=== PATIENT | male | born 1975 | race Two or more races ===

== ENCOUNTER 2017-01-26 11:30 | Emergency (ER) | payer SELFPAY ==
[~2017-01-26] VITALS: Ht 175.3 cm; Wt 86.2 kg
[2017-01-26 12:25] LABS: Basophils # (auto) 0 uL; Basophils % (auto) 0.6 % (0.0-2.0); Eosinophils # (auto) 0.1 uL; Eosinophils % (auto) 0.8 % (0.0-7.0); Hematocrit 44.8 % (41.0-53.0); Hemoglobin 15.1 g/dL (13.5-17.5); Lymphocytes # (auto) 1.3 uL; Lymphocytes % (auto) 20.4 % (10.0-50.0); Mean Corpuscular Hemoglobin 31.2 pg (28.0-32.0); Mean Corpuscular Hgb Conc. 33.7 g/dL (32.0-36.0); Mean Corpuscular Volume 92.5 fL (80.0-100.0); Monocytes # (auto) 0.4 uL; Monocytes % (auto) 6.6 % (0.0-12.0); Neutrophils # (auto) 4.4 uL; Neutrophils % (auto) 71.6 % (37.0-80.0); Nucleated Red Blood Cells % 0.1 %; Platelet Count (auto) 206 10^3/uL (140-450); Red Blood Cells 4.85 10^6/uL (4.5-5.90); Red Cell Distribution Width 13.1 % (11.8-14.3); White Blood Cell 6.1 10^3/uL (4.4-10.8)
[2017-01-26 12:48] LABS: Alanine Aminotransferase 32 U/L (16-61); Albumin 4.4 g/dL (3.4-5.0); Alkaline Phosphatase 116 U/L (45-117); Anion Gap 8 (5-15); Aspartate Aminotransferase 16 U/L (15-37); BUN/Creatinine Ratio 17.6; Bilirubin, Total 0.4 mg/dL (0.2-1.0); Blood Urea Nitrogen 15 mg/dL (7-18); Calcium 8.7 mg/dL (8.5-10.1); Carbon Dioxide 27 mmol/L (21-32); Chloride 104 mmol/L (98-107); GFR African American 128 mL/min; GFR Non-African American 106 mL/min; Glucose 128 mg/dL (74-106); Magnesium 2.5 mg/dL (1.6-2.6); Potassium 4.1 mmol/L (3.5-5.1); Sodium 139 mmol/L (136-145); Total Protein 8.6 g/dL (6.4-8.2)
[2017-01-26 13:55] VITALS: BP 129/80
[2017-01-26] MEDS ORDERED: LORazepam 0.5 MG TAB PO ONE (14:45)
[2017-01-26] MEDS ORDERED: ASPirin 325 MG TAB PO ONE (14:45)
== END 2017-01-26 15:51 | disposition home or self-care (01) ==
LOC: ER 11:30
DX: R07.89 Other chest pain (principal); F41.9 Anxiety disorder, unspecified
CPT/HCPCS: 36415; 71020; 80053; 83735; 84484; 85025; 93005

== ENCOUNTER 2017-03-11 10:16 | Inpatient (IN) | payer SELFPAY ==
[~2017-03-11] VITALS: Ht 182.9 cm; Wt 87.4 kg
[2017-03-11 11:05] LABS: Basophils # (auto) 0 uL; Basophils % (auto) 0.6 % (0.0-2.0); Eosinophils # (auto) 0 uL; Eosinophils % (auto) 0.8 % (0.0-7.0); Hematocrit 48.6 % (41.0-53.0); Hemoglobin 16.4 g/dL (13.5-17.5); Lymphocytes # (auto) 1.7 uL; Lymphocytes % (auto) 27.5 % (10.0-50.0); Mean Corpuscular Hemoglobin 30.8 pg (28.0-32.0); Mean Corpuscular Hgb Conc. 33.6 g/dL (32.0-36.0); Mean Corpuscular Volume 91.6 fL (80.0-100.0); Mean Platelet Volume 8.8 fL (6.9-10.8); Monocytes # (auto) 0.4 uL; Monocytes % (auto) 7.1 % (0.0-12.0); Nucleated Red Blood Cells % 0.1 %; Platelet Count (auto) 234 10^3/uL (140-450); Red Cell Distribution Width 13.1 % (11.8-14.3); White Blood Cell 6.2 10^3/uL (4.4-10.8)
[2017-03-11 11:22] LABS: Albumin 4.6 g/dL (3.4-5.0); BUN/Creatinine Ratio 9.7; Bilirubin, Total 0.5 mg/dL (0.2-1.0); Calcium 9.3 mg/dL (8.5-10.1); Potassium 5.3 mmol/L (3.5-5.1)
[2017-03-11] MEDS ORDERED: SODIUM BICARBONATE 8.4% INJ 50ML SYRINGE IV ONE (11:45)
[2017-03-11] MEDS ORDERED: CALCIUM GLUC 4.65meq/50ml D5AE 50 ML IV ONE (11:45)
[2017-03-11] MEDS ORDERED: DEXTROSE (50%) 50ML SYRG IV ONE (11:45)
[2017-03-11] MEDS ORDERED: InsuLIN REG 1unit/0.01ml Soln (100units/ml) IV ONE (11:45)
[2017-03-11] MEDS ORDERED: SODIUM POLYSTYRENE SULF 15GM/60ML SUSP PR ONE (11:45)
[2017-03-11 11:53] LABS: Temperature: 23.5 C (20.0-25.0)
[2017-03-11] MEDS ORDERED: IOHEXOL 300 MG/ML 100ML BOTTLE IJ ONE (13:40)
[2017-03-11] MEDS ORDERED: IOHEXOL 350 MG/ML 100ML IJ ONE (13:42)
[2017-03-11] MEDS ORDERED: TEMAZEPAM 15 MG CAP PO PRN (13:45)
[2017-03-11] MEDS ORDERED: HYDROcodone-ACET 5/325MG TAB PO PRN (13:45)
[2017-03-11] MEDS ORDERED: ACETAMINOPHEN 325 MG TAB PO PRN (13:45)
[2017-03-11] MEDS ORDERED: NITROGLYCERIN 0.4 MG SL TAB SL PRN (13:45)
[2017-03-11] MEDS ORDERED: ONDANSETRON HCL 4 MG/2 ML VIAL IV PRN (13:45)
[2017-03-11] MEDS ORDERED: MORPHINE SULF INJ 2 MG/ML SYRINGE 1ML IV PRN ×2 (13:45)
[2017-03-11] MEDS ORDERED: DOCUSATE SOD 100 MG CAP PO PRN (13:45)
[2017-03-11] MEDS ORDERED: PANTOPRAZOLE 40 MG TAB PO ONE (14:00)
[2017-03-11] MEDS ORDERED: ENOXAPARIN SOD 40 MG/0.4 ML SYRINGE SC ONE (14:00)
[2017-03-11] MEDS ORDERED: ALUM & MAG HYDROX-SIMETH LIQ(MAALOX) 30 ML PO PRN (14:00)
[2017-03-11] MEDS ORDERED: MULTIPLE VITAMIN TAB PO ONE (14:00)
[2017-03-11] MEDS: SODIUM CHLORIDE 0.9% 1,000 ML IV SCH (14:14)
[2017-03-11] MEDS ORDERED: ALPRAZolam 0.25 MG TAB PO PRN (14:15)
[2017-03-11 15:31] LABS: Urine RBC None Seen /hpf (0 - 3)
[2017-03-11 15:45] LABS: Urine Bilirubin Negative (Negative); Urine Blood Negative /uL (Negative); Urine Color Colorless (Yellow); Urine Glucose Normal (Normal); Urine Ketone Negative (Negative); Urine Nitrite Negative (Negative); Urine Urobilinogen Normal (Negative); Urine pH 6.5 (5.0-8.0)
[2017-03-11 17:40] VITALS: BP 125/70
[2017-03-11 18:07] VITALS: BP 125/70
[2017-03-11 22:00] VITALS: BP 111/67
[2017-03-11] MEDS ORDERED: FAMOTIDINE 20 MG TAB PO SCH (22:00)
[2017-03-12] MEDS: SODIUM CHLORIDE 0.9% 1,000 ML IV SCH ×4 (03:10→23:01)
[2017-03-12 05:53] LABS: Basophils # (auto) 0 uL; Basophils % (auto) 0.5 % (0.0-2.0); Eosinophils # (auto) 0.1 uL; Eosinophils % (auto) 1.2 % (0.0-7.0); Hematocrit 41.4 % (41.0-53.0); Hemoglobin 13.9 g/dL (13.5-17.5); Lymphocytes % (auto) 38.2 % (10.0-50.0); Mean Corpuscular Hemoglobin 30.6 pg (28.0-32.0); Mean Corpuscular Hgb Conc. 33.5 g/dL (32.0-36.0); Mean Corpuscular Volume 91.5 fL (80.0-100.0); Mean Platelet Volume 9.1 fL (6.9-10.8); Monocytes # (auto) 0.5 uL; Monocytes % (auto) 8.8 % (0.0-12.0); Neutrophils # (auto) 2.7 uL; Neutrophils % (auto) 51.3 % (37.0-80.0); Nucleated Red Blood Cells % 0.2 %; Platelet Count (auto) 192 10^3/uL (140-450); Red Cell Distribution Width 13.2 % (11.8-14.3); White Blood Cell 5.4 10^3/uL (4.4-10.8)
[2017-03-12 06:00] VITALS: BP 110/63
[2017-03-12 06:27] LABS: Albumin 3.6 g/dL (3.4-5.0); BUN/Creatinine Ratio 12.5; Calcium 8.3 mg/dL (8.5-10.1); Potassium 4.1 mmol/L (3.5-5.1)
[2017-03-12 06:29] LABS: Bilirubin, Total 0.4 mg/dL (0.2-1.0); Total Protein 7.1 g/dL (6.4-8.2)
[2017-03-12 08:00] VITALS: BP 111/62
[2017-03-12 08:18] VITALS: BP 111/65
[2017-03-12] MEDS ORDERED: MULTIPLE VITAMIN TAB PO SCH (10:00)
[2017-03-12] MEDS ORDERED: PANTOPRAZOLE 40 MG TAB PO SCH (10:00)
[2017-03-12] MEDS: ENOXAPARIN SOD 40 MG/0.4 ML SYRINGE SC SCH (10:20)
[2017-03-12 11:07] LABS: Amylase 34 U/L (25-115)
[2017-03-12 12:02] VITALS: BP 116/67
[2017-03-12 16:42] VITALS: BP 116/65
[2017-03-12] MEDS ORDERED: MULTIPLE VITAMINS W/ MINERALS TAB PO ONE (17:15)
[2017-03-12] MEDS: PRO-STAT 64 30ML PO SCH (19:07)
[2017-03-12 22:00] VITALS: BP 121/66
[2017-03-12] MEDS: PANTOPRAZOLE 40 MG TAB PO SCH (22:19)
[2017-03-12] MEDS: ASCORBIC ACID 500 MG TAB PO SCH (22:20)
[2017-03-13 04:49] VITALS: BP 125/74
[2017-03-13 06:59] LABS: Basophils # (auto) 0 uL; Basophils % (auto) 0.7 % (0.0-2.0); Eosinophils # (auto) 0 uL; Eosinophils % (auto) 0.4 % (0.0-7.0); Hematocrit 40.7 % (41.0-53.0); Hemoglobin 13.7 g/dL (13.5-17.5); Lymphocytes # (auto) 1.4 uL; Lymphocytes % (auto) 25.3 % (10.0-50.0); Mean Corpuscular Hemoglobin 30.8 pg (28.0-32.0); Mean Corpuscular Hgb Conc. 33.7 g/dL (32.0-36.0); Mean Corpuscular Volume 91.3 fL (80.0-100.0); Mean Platelet Volume 8.8 fL (6.9-10.8); Monocytes # (auto) 0.3 uL; Monocytes % (auto) 6.4 % (0.0-12.0); Neutrophils # (auto) 3.6 uL; Neutrophils % (auto) 67.2 % (37.0-80.0); Platelet Count (auto) 185 10^3/uL (140-450); Red Cell Distribution Width 13.1 % (11.8-14.3); White Blood Cell 5.4 10^3/uL (4.4-10.8)
[2017-03-13 07:18] LABS: Albumin 3.6 g/dL (3.4-5.0); BUN/Creatinine Ratio 10.4; Calcium 8.3 mg/dL (8.5-10.1); Potassium 3.9 mmol/L (3.5-5.1)
[2017-03-13] MEDS: SODIUM CHLORIDE 0.9% 1,000 ML IV SCH (07:21)
[2017-03-13 07:26] LABS: Bilirubin, Total 0.5 mg/dL (0.2-1.0); Total Protein 7.2 g/dL (6.4-8.2)
[2017-03-13] MEDS ORDERED: FLUMAZENIL 0.1 MG/ML INJ 10ML MDV IV ONE (08:17)
[2017-03-13] MEDS ORDERED: LIDOCAINE VISCOUS 2% 15ML UD ONE (08:17)
[2017-03-13] MEDS ORDERED: SODIUM CHLORIDE LOCK 10 ML ONE (08:17)
[2017-03-13] MEDS ORDERED: NALOXONE HCL 0.4 MG/ML VIAL ONE (08:17)
[2017-03-13] MEDS ORDERED: diphenhdrAMINE HCL 50 MG/1 ML VL ONE (08:18)
[2017-03-13] MEDS: PRO-STAT 64 30ML PO SCH ×2 (08:18→18:00)
[2017-03-13 08:19] LABS: INR 0.99 (0.9-1.15); Partial Thromboplastin Time 29.4 sec (22.64-33.71); Prothrombin Time 10.8 sec (9.37-12.3)
[2017-03-13 09:16] VITALS: BP 130/75
[2017-03-13] MEDS: MIDAZOLAM HCL 5 MG/ML-1ML VIAL ONE ×2 (10:19→10:22)
[2017-03-13] MEDS: fentaNYL CITRATE 100 MCG/2 ML VL ONE ×2 (10:19→10:22)
[2017-03-13 11:51] VITALS: BP 126/84
[2017-03-13] MEDS: MULTIPLE VITAMINS W/ MINERALS TAB PO SCH (12:00)
[2017-03-13] MEDS: PANTOPRAZOLE 40 MG TAB PO SCH ×2 (12:00→21:26)
[2017-03-13] MEDS: ASCORBIC ACID 500 MG TAB PO SCH ×2 (12:00→21:26)
[2017-03-13] MEDS: ENOXAPARIN SOD 40 MG/0.4 ML SYRINGE SC SCH (12:00)
[2017-03-13 17:48] VITALS: BP 126/70
[2017-03-13 23:53] VITALS: BP 114/71
[2017-03-14 05:58] VITALS: BP 125/71
[2017-03-14] MEDS: PRO-STAT 64 30ML PO SCH (08:00)
[2017-03-14 08:24] VITALS: BP 117/68
[2017-03-14] MEDS: ASCORBIC ACID 500 MG TAB PO SCH (09:51)
[2017-03-14] MEDS: MULTIPLE VITAMINS W/ MINERALS TAB PO SCH (09:51)
[2017-03-14] MEDS: ENOXAPARIN SOD 40 MG/0.4 ML SYRINGE SC SCH (09:51)
[2017-03-14] MEDS: PANTOPRAZOLE 40 MG TAB PO SCH (09:51)
[2017-03-14] MEDS ORDERED: MORPHINE SULFATE 4 MG/ML SYRG IV PRN ×2 (11:45)
[2017-03-14 12:28] VITALS: BP 117/68
[2017-03-14 13:00] VITALS: BP 113/69
== END 2017-03-14 13:15 | disposition home or self-care (01) | DRG 392 ==
LOC: ER 10:16 → TELE 10:17 → TELE-EAST 17:36
PROVIDERS: ADMIT Internal Medicine; ATTEND Family Medicine
PROC: 0DB68ZX Excision of Stomach, Via Natural or Artificial Opening Endoscopic, Diagnostic (ICD-10-PCS; principal; 2017-03-13 10:16)
DX: K29.00 Acute gastritis without bleeding (principal); I24.9 Acute ischemic heart disease, unspecified; E87.1 Hypo-osmolality and hyponatremia; E86.0 Dehydration; E87.5 Hyperkalemia; F41.9 Anxiety disorder, unspecified; K29.80 Duodenitis without bleeding; N18.2 Chronic kidney disease, stage 2 (mild); Z83.3 Family history of diabetes mellitus
CPT/HCPCS: 36415; 43239; 71260; 74177; 76705; 80053; 80307; 81001; 82150; 83690; 83880; 84132; 84443; 84484; 85025; 85610; 85730; 93005; 93306; 96360; 96372; J0610; J2250

== ENCOUNTER 2024-04-17 15:48 | Inpatient (IN) | payer MEDICAID ==
[~2024-04-17] VITALS: Ht 177.8 cm; Wt 94.7 kg
--- NOTE | 2024-04-17 15:54 | ECG ---
[facility] Test Date: 2024-04-17 Test Time: 15:53:23 Pat Name: ARLET SCHROEDER Department: ER Room: 0270T Gender: M Cow Tester: JANAY : 1975 Requested By: GRAEME OQUENDO Order Number: [id number] Reading MD: Henry Pate Measurements Intervals [place] Rate: 85 P: 20 MN: 151 QRS: 41 QRSD: 98 T: 32 QT: 355 QTc: 422 Interpretive Statements Sinus rhythm Electronically Signed On 04-21-2024 8:48:50 PST by Henry Pate Please click the below link to view image of tracing.
[2024-04-17 16:25] LABS: Basophils # (auto) 0 10 ^3/uL (0-0.2); Basophils % (auto) 0.6 % (0.0-2.0); Eosinophils # (auto) 0.1 10 ^3/uL (0-0.8); Hematocrit 42.5 % (41.0-53.0); Hemoglobin 14.5 g/dL (13.5-17.5); Lymphocytes # (auto) 2.4 10 ^3/uL (0.4-5.4); Lymphocytes % (auto) 36.4 % (10.0-50.0); Mean Corpuscular Hemoglobin 31.1 pg (28.0-32.0); Mean Corpuscular Hgb Conc. 34.2 g/dL (32.0-36.0); Mean Corpuscular Volume 90.8 fL (80.0-100.0); Monocytes # (auto) 0.5 10 ^3/uL (0-1.3); Monocytes % (auto) 6.8 % (0.0-12.0); Neutrophils # (auto) 3.7 10 ^3/uL (1.6-8.6); Neutrophils % (auto) 55.2 % (37.0-80.0); Nucleated Red Blood Cells % 0.1 %; Platelet Count (auto) 199 10^3/uL (140-450); Red Blood Cells 4.68 10^6/uL (4.5-5.90); Red Cell Distribution Width 13.3 % (11.8-14.3); White Blood Cell 6.7 10^3/uL (4.4-10.8)
--- NOTE | 2024-04-17 16:27 | ED.PDOC ---
HPI Comments 48-year-old male with no PMHx presents with a chief complaint of chest pain x 3 days. Patient states that he is having chest pain to his right chest wall, radiating to his back, describes as sharp, and rates his pain a 7/10. Patient states that pain is intermittent and is present whenever he goes to work. 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 Patient endorses some alcohol and tobacco use. Patient denies any pain at rest and pain is exacerbated with exertion. No other symptoms or modifying factors present at this time. Chief Complaint: Chest Pain Time Seen by MD: 15:54 Primary Care Provider: NONE Reviewed Notes: Medications, Allergies Allergies: Coded Allergies: NO KNOWN ALLERGIES (Unverified , 01/26/17) Home Meds No Active Prescriptions or Reported Meds Information Source: Patient Mode of Arrival: Ambulatory Severity: Moderate Timing: Days Duration: Intermittent Prehospital treatment: None Location: Chest (R) Radiation: Back Quality: Sharp Onset: With Heavy Exertion Cardiac Risk Factors: Smoker, Family History PE Risk Factors: None History of: None Past Medical History PAST MEDICAL HISTORY: Denies Surgical History: Denies all surgeries Family History Family History: Unknown Social History Smoker: Non-Smoker Alcohol: Denies ETOH Use Drugs: Denies Drug Use Lives In: Home Constitutional: denies: chills, diaphoresis, fatigue, fever, malaise, sweats, weakness, others EENTM: denies: blurred vision, double vision, ear bleeding, ear discharge, ear drainage, ear pain, ear ringing, eye pain, eye redness, hearing loss, mouth pain, mouth swelling, nasal discharge, nose bleeding, nose congestion, nose pain, photophobia, tearing, throat pain, throat swelling, voice changes, others Respiratory: denies: cough, hemoptysis, orthopnea, SOB at rest, shortness of breath, SOB with excertion, stridor, wheezing, others Cardiovascular: reports: chest pain; denies: dizzy spells, diaphoresis, Dyspnea on exertion, edema, irregular heart beat, left arm pain, lightheadedness, palpitations, PND, syncope, others Gastrointestinal: denies: abdomen distended, abdominal pain, blood streaked bowels, constipated, diarrhea, dysphagia, difficulty swallowing, hematemesis, melena, nausea, poor appetite, poor fluid intake, rectal bleeding, rectal pain, vomiting, others Genitourinary: denies: burning, dysuria, flank pain, frequency, hematuria, incontinence, penile discharge, penile sore, pain, testicle pain, testicle swelling, urgency, others Neurological: denies: dizziness, fainting, headache, left sided numbness, left sided weakness, numbness, paresthesia, pre-existing deficit, right sided numbness, right sided weakness, seizure, speech problems, tingling, tremors, weakness, others Musculoskeletal: denies: back pain, gout, joint pain, joint swelling, muscle pain, muscle stiffness, neck pain, others Integumetry: denies: bruises, change in color, change in hair/nails, dryness, laceration, lesions, lumps, rash, wounds, others Allergic/Immunocompromised: denies: Difficulty Healing, Frequent Infections, Hives, Itching, others Hematologic/Lymphatic: denies: anemia, blood clots, easy bleeding, easy bruising, swollen glands, others Endocrine: denies: excessive hunger, excessive sweating, excessive thirst, excessive urination, flushing, intolerance to cold, intolerance to heat, unexplained weight gain, unexplained weight loss, others Psychiatric: denies: anxiety, bipolar disorder, depression, hopeless, panic disorder, schizophrenia, sleepless, suicidal, others All Other Systems: Reviewed and Negative Physical Exam General Appearance: No Apparent Distress, Normal HEENT: Normal ENT Inspection, Pharynx Normal, TMs Normal Neck: Full Range of Motion, Non-Tender, Normal, Normal Inspection Respiratory: Chest Non-Tender, Lungs Clear, No Accessory Muscle Use, No Respiratory Distress, Normal Breath Sounds Cardiovascular: No Edema, No JVD, No Murmur, No Gallop, Normal Peripheral Pulses, Regular Rate/Rhythm Breast Exam: Deferred Gastrointestinal: No Organomegaly, Non Tender, No Pulsatile Mass, Normal Bowel Sounds, Soft Genitalia: Deferred Pelvic: Deferred Rectal: Deferred Extremities: No calf tenderness, Normal capillary refill, Normal inspection, Normal range of motion, Non-tender, No pedal edema Musculoskeletal : Apperance: Normal Neurologic: Alert, 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 Was a procedure done?: No CP Differential Dx Differential Diagnosis: WI Differential Diagnosis: Angina, Aortic dissection, Chest Wall Pain, Myocardial Infarction, Pulmonary Embolus X-Ray, Labs, Meds, VS Vital Signs Date Time Temp Pulse Resp B/P (MAP) Pulse Ox O2 Delivery O2 Flow Rate FiO2 04/17/24 16:27 85 04/17/24 16:11 98.1 89 16 152/89 (110) 99 04/17/24 15:53 85 Lab Test 04/17/24 16:00 Range/Units White Blood Count 6.7 4.4-10.8 10^3/uL Red Blood Count 4.68 4.5-5.90 10^6/uL Hemoglobin 14.5 13.5-17.5 g/dL Hematocrit 42.5 41.0-53.0 % Mean Corpuscular Volume 90.8 80.0-100.0 fL Mean Corpuscular Hemoglobin 31.1 28.0-32.0 pg Mean Corpuscular Hemoglobin Concent 34.2 32.0-36.0 g/dL Red Cell Distribution Width 13.3 11.8-14.3 % Platelet Count 199 140-450 10^3/uL Mean Platelet Volume 9.0 6.9-10.8 fL Neutrophils (%) (Auto) 55.2 37.0-80.0 % Lymphocytes (%) (Auto) 36.4 10.0-50.0 % Monocytes (%) (Auto) 6.8 0.0-12.0 % Eosinophils (%) (Auto) 1.0 0.0-7.0 % Basophils (%) (Auto) 0.6 0.0-2.0 % Neutrophils # (Auto) 3.7 1.6-8.6 10 ^3/uL Lymphocytes # (Auto) 2.4 0.4-5.4 10 ^3/uL Monocytes # (Auto) 0.5 0-1.3 10 ^3/uL Eosinophils # (Auto) 0.1 0-0.8 10 ^3/uL Basophils # (Auto) 0 0-0.2 10 ^3/uL Nucleated Red Blood Cells 0.1 % Sodium Level 139 136-145 mmol/L Potassium Level 3.2 L 3.5-5.1 mmol/L Chloride Level 103 98-107 mmol/L Carbon Dioxide Level 25 20-31 mmol/L Anion Gap 11 5-15 Blood Urea Nitrogen 11 9-23 mg/dL Creatinine 0.93 0.700-1.30 mg/dL Glomerular Filtration Rate Calc 101 >90 mL/min BUN/Creatinine Ratio 11.8 10.0-20.0 Serum Glucose 98 74-106 mg/dL Calcium Level 9.6 8.7-10.4 mg/dL Total Bilirubin 0.4 0.2-1.0 mg/dL Aspartate Amino Transferase (AST) 15 13-40 U/L Alanine Aminotransferase (ALT) < 9 7-40 U/L Alkaline Phosphatase 101 46-116 U/L Troponin I High Sensitivity < 3 L </=54 ng/L Total Protein 7.2 5.7-8.2 g/dL Albumin 4.9 H 3.2-4.8 g/dL X-Ray, Labs, Meds, VS Comment 48-year-old male presents here with chest discomfort. He states the pain has been for 3 days and worse with exertion when he is at work. 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 He states it goes away by itself. At this time blood work is unremarkable. CBC CMP within normal limits. First troponin is negative. EKG no significant ST changes. Chest x-ray with no significant abnormalities. I have given the patient aspirin, and nitroglycerin in the ER. Clinically he is feeling better. At this time though I am suspicious about cardiac disease given his exertional chest pain. Hospitalist team has been consulted for admission. Time of 1ST Reevaluation: 16:14 Reevaluation 1ST: Unchanged Patient Education/Counseling: Diagnosis, Treatment, Prognosis Family Education/Counseling: Diagnosis, Treatment, Prognosis Departure 1 Departure Time of Disposition: 17:04 Impression: Primary Impression: Chest pain Qualified Codes: R07.9 - Chest pain, unspecified Disposition: 09 ADMITTED INPATIENT Condition: Stable e-Prescriptions No Active Prescriptions or Reported Meds Critical Care Note Critical Care Time?: No Stability Stability form required: No Heart Score Heart Score: Heart Score Response (Comments) Value History Moderate Suspicious 1 EKG Normal 0 Age 45-64 1 Risk Factors 1 or 2 risk factors 1 Troponin Normal limit 0 Total 3 I personally scribed for ARIELLA HAWTHORNE MD ([facility] on 04/17/24 at 16:27. Electronically submitted by Felix Narayan ([email or web address]). ARIELLA HAWTHORNE MD Apr 17, 2024 16:27
[2024-04-17 16:51] LABS: Alkaline Phosphatase 101 U/L (46-116); Anion Gap 11 (5-15); Aspartate Aminotransferase 15 U/L (13-40); BUN/Creatinine Ratio 11.8 (10.0-20.0); Blood Urea Nitrogen 11 mg/dL (9-23); Calcium 9.6 mg/dL (8.7-10.4); Carbon Dioxide 25 mmol/L (20-31); Chloride 103 mmol/L (98-107); Glucose 98 mg/dL (74-106); Sodium 139 mmol/L (136-145)
[2024-04-17 16:52] LABS: Bilirubin, Total 0.4 mg/dL (0.2-1.0); Total Protein 7.2 g/dL (5.7-8.2)
[2024-04-17 16:53] LABS: Alanine Aminotransferase < 9 U/L (7-40); Albumin 4.9 g/dL (3.2-4.8); Potassium 3.2 mmol/L (3.5-5.1)
[2024-04-17] MEDS: ASPirin 81 mg TAB PO ONE (17:57)
[2024-04-17] MEDS: NITROGLYCERIN 0.4 MG SL TAB SL ONE (18:05)
--- NOTE | 2024-04-17 18:45 | DVH ---
XY CHEST TWO VIEWS ROUTINE CLINICAL HISTORY: chest pain COMPARISON: None TECHNIQUE: Frontal and lateral view of the chest was obtained FINDINGS: Lines and Tubes: None Lungs: No focal consolidation. Pleura: No effusion. No pneumothorax. Cardiomediastinal contours: Unremarkable Bones: No acute osseous abnormality. IMPRESSION: No acute cardiopulmonary disease.
[2024-04-17 21:49] VITALS: PULSE 65; RESP 18; O2SAT 98
[2024-04-17] MEDS ORDERED: MORPHINE SULFATE INJ 2 MG/ml SYRG IV PRN ×2 (23:00)
[2024-04-17] MEDS ORDERED: NITROGLYCERIN 0.4 MG SL TAB SL PRN (23:00)
[2024-04-17] MEDS ORDERED: ONDANSETRON HCL 4 MG/2 ML VIAL IV PRN (23:00)
[2024-04-17] MEDS ORDERED: ACETAMINOPHEN 325 MG TAB PO PRN (23:00)
[2024-04-17] MEDS ORDERED: DOCUSATE SOD 100 MG CAP PO PRN (23:00)
[2024-04-17] MEDS ORDERED: hydrALAZINE HCL 20 MG/ML VL IV PRN (23:00)
--- NOTE | 2024-04-17 23:04 | DVHHP2 ---
History of Present Illness Reason for Visit: Acute chest pain History of Present Illness The patient is a 48-year-old male who denies past medical history presented to [facility] ED with complaint of chest pain for 3 days duration. Patient reports symptoms progressively get worse with his right chest wall pain, radiating to his back, sharp in nature, rating 7/10 numeric scale, intermittent, getting worse that prompted this visit. Patient was seen and evaluated in the ED, laboratory data shows WBC 6.7, platelets 199, sodium 139, potassium 3.2, BUN 11, creatinine 0.98, GFR 101, glucose 98, troponin 3. Chest x-ray show no acute cardiopulmonary disease. Patient was given aspirin 325 mg x 1, please see medication orders section in the computer. On my assessment, at bedside, patient denied chest pain at this moment, no headache, no dizziness, no diaphoresis, no shortness of breaths, no nausea, no vomiting, no fever, no chills. Patient was admitted for further evaluation and medical management. Past Medical History Denies past medical history Past Surgical History Denies all surgeries Family History Reviewed, noncontributory to the management of this case. Past Social History The patient lives at home, denies smoking, alcohol or illicit drugs abuse. Review of Systems Constitutional: No: Fever, Chills, Sweats, Weakness, Malaise, Other Eyes: No: Pain, Vision change, Conjunctivae inflammation, Eyelid inflammation, Other, Redness ENT: No: Ear pain, Ear discharge, Nose pain, Nose discharge, Nose congestion, Mouth pain, Mouth swelling, Throat pain, Throat swelling, Other Respiratory: No: Cough, Dry, Shortness of breath, SOB with excertion, Wheezing, Hemoptysis, Pleuritic Pain, Sputum, Wheezing, Other Cardiovascular: Chest Pain; No: Palpitations, Orthopnea, Paroxysmal Noc. Dyspnea, Edema, Lt Headedness, Other Gastrointestinal: No: Nausea, Vomiting, Abdominal Pain, Diarrhea, Constipation, Melena, Hematochezia, Other Genitourinary: No Dysuria, No Frequency, No Incontinence, No Hematuria, No Retention, No Other Musculoskeletal: No: other, neck pain, shoulder pain, arm pain, back pain, hand pain, leg pain, foot pain Skin: No: Rash, Lesions, Jaundice, Bruising, Other Neurological: No: Weakness, Numbness, Incoordination, Change in speech, Confusion, Seizures, Other Allergies: Coded Allergies: NO KNOWN ALLERGIES (Unverified , 01/26/17) Exam Vital Signs Vital Signs Date Time Temp Pulse Resp B/P (MAP) Pulse Ox O2 Delivery O2 Flow Rate FiO2 04/17/24 21:49 65 18 98 Room Air* 0 21 04/17/24 21:49 98.1 141/84 (103) 98.1 General Appearance: Alert, Oriented X3, Cooperative, No acute distress HEENT: Atraumatic, PERRLA, EOMI, Mucous membr. moist/pink Respiratory: Clear to auscultation, Normal air movement Cardiovascular: Regular rate, Normal S1, Normal S2, No murmurs Abdominal: Normal bowel sounds, Soft, No tenderness, No hepatospenomegaly, No masses Extremities: No clubbing, No cyanosis, No edema, Normal pulses, No tenderness/s welling Skin: No rashes, No breakdown, No significant lesion Neuro: Normal gait, Normal speech, Strength at 5/5 X4 ext, Normal tone, Sensation intact, Cranial nerves 3-12 NL, Reflexes 2+ Psych/Mental Status: Mental status NL, Mood NL Labs/Xrays Labs Test 04/17/24 17:00 04/17/24 16:00 Range/Units Troponin I High Sensitivity < 3 L </=54 ng/L White Blood Count 6.7 4.4-10.8 10^3/uL Red Blood Count 4.68 4.5-5.90 10^6/uL Hemoglobin 14.5 13.5-17.5 g/dL Hematocrit 42.5 41.0-53.0 % Mean Corpuscular Volume 90.8 80.0-100.0 fL Mean Corpuscular Hemoglobin 31.1 28.0-32.0 pg Mean Corpuscular Hemoglobin Concent 34.2 32.0-36.0 g/dL Red Cell Distribution Width 13.3 11.8-14.3 % Platelet Count 199 140-450 10^3/uL Mean Platelet Volume 9.0 6.9-10.8 fL Neutrophils (%) (Auto) 55.2 37.0-80.0 % Lymphocytes (%) (Auto) 36.4 10.0-50.0 % Monocytes (%) (Auto) 6.8 0.0-12.0 % Eosinophils (%) (Auto) 1.0 0.0-7.0 % Basophils (%) (Auto) 0.6 0.0-2.0 % Neutrophils # (Auto) 3.7 1.6-8.6 10 ^3/uL Lymphocytes # (Auto) 2.4 0.4-5.4 10 ^3/uL Monocytes # (Auto) 0.5 0-1.3 10 ^3/uL Eosinophils # (Auto) 0.1 0-0.8 10 ^3/uL Basophils # (Auto) 0 0-0.2 10 ^3/uL Nucleated Red Blood Cells 0.1 % Sodium Level 139 136-145 mmol/L Potassium Level 3.2 L 3.5-5.1 mmol/L Chloride Level 103 98-107 mmol/L Carbon Dioxide Level 25 20-31 mmol/L Anion Gap 11 5-15 Blood Urea Nitrogen 11 9-23 mg/dL Creatinine 0.93 0.700-1.30 mg/dL Glomerular Filtration Rate Calc 101 >90 mL/min BUN/Creatinine Ratio 11.8 10.0-20.0 Serum Glucose 98 74-106 mg/dL Calcium Level 9.6 8.7-10.4 mg/dL Total Bilirubin 0.4 0.2-1.0 mg/dL Aspartate Amino Transferase (AST) 15 13-40 U/L Alanine Aminotransferase (ALT) < 9 7-40 U/L Alkaline Phosphatase 101 46-116 U/L Total Protein 7.2 5.7-8.2 g/dL Albumin 4.9 H 3.2-4.8 g/dL PATIENT: ARLET SCHROEDER ACCT: [id number] UNIT: [id number] : 1975 LOC: ER ROOM / BED: / AGE / SEX: 48 / M ADM STATUS: REG ER SERVICE [id number] ORDERING PHYSICIAN: ARIELLA HAWTHORNE MD PROCEDURE(s): CXR2 - CHEST TWO VIEWS ROUTINE REASON: chest pain ORDER NUMBER(s): [id number], ACCESSION NUMBER(s): [id number] XY CHEST TWO VIEWS ROUTINE CLINICAL HISTORY: chest pain COMPARISON: None TECHNIQUE: Frontal and lateral view of the chest was obtained FINDINGS: Lines and Tubes: None Lungs: No focal consolidation. Pleura: No effusion. No pneumothorax. Cardiomediastinal contours: Unremarkable Bones: No acute osseous abnormality. IMPRESSION: No acute cardiopulmonary disease. Assessment/Plan Assessment/Plan Acute chest pain Hypokalemia Plan 1. Admit to telemetry unit 2. Breathing treatment 3. Pain control management 4. Management of fluids and electrolytes 5. Consultation for hospitalist 6. Diagnostic tests chest x-ray 7. DVT prophylaxis-on aspirin 8. Repeat labs CBC, CMP in a.m. 9. Continue with current medical management 10. Treatment plan discussed with patient and RN. Patient verbalized understanding. Plan discussed with: Patient, Spouse (), Other (RN) Problem List: (1) Acute chest pain (2) Hypokalemia Date of Service: Apr 17, 2024 Billing Provider: AMOL MONTANO DNP Common Visit Codes: [id number] INP/OBS CARE (HIGH) AMOL MONTANO DNP Apr 17, 2024 23:04
[2024-04-18 09:45] VITALS: PULSE 84; RESP 15; O2SAT 96
[2024-04-18] MEDS: ASPirin 81 mg TAB PO SCH (10:07)
[2024-04-18] MEDS: HYDROcodone-ACET 5/325MG TAB PO PRN (10:07)
[2024-04-18] MEDS: POTASSIUM CHL 20 Meq TABLET PO ONE ×2 (10:08→10:12)
[2024-04-18] MEDS: SODIUM CHLORIDE 0.9% 1,000 ML IV SCH (10:10)
[2024-04-18 10:43] VITALS: PULSE 68; RESP 16; O2SAT 97
[2024-04-18] MEDS: ATORVASTATIN 20 MG TAB PO SCH (21:48)
[2024-04-18 23:46] VITALS: BP_SYST 121; BP_DIAS 71; BP_DIAS 72; PULSE 73; RESP 20; TEMP 97.9; O2SAT 97
[2024-04-19] VITALS (7 sets, daily range): BP systolic 111–122; BP diastolic 57–74; PULSE 62–88; RESP 16–18; TEMP 98–98.4; O2SAT 95–98
--- NOTE | 2024-04-19 09:39 | ECG ---
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
--- NOTE | 2024-04-19 13:47 | DVHPN2 ---
Reviewed: Care Plan, H&P, Labs, Medications, Previous Orders, Radiology Changes from previous H/P or p: No Changes Eyes: No Pain, No Vision change, No Conjunctivae inflammation, No Eyelid inflammation, No Other, No Redness ENT: No Ear pain, No Ear discharge, No Nose pain, No Nose discharge, No Nose congestion, No Mouth pain, No Mouth swelling, No Throat pain, No Throat swelling, No Other Cardiovascular: Chest Pain; No Palpitations, No Orthopnea, No Paroxysmal Noc. Dyspnea, No Edema, No Lt Headedness, No Other Respiratory: No Cough, No Dry, No Shortness of breath, No SOB with excertion, No Wheezing, No Hemoptysis, No Pleuritic Pain, No Sputum, No Other Gastrointestinal: No Nausea, No Vomiting, No Abdominal Pain, No Diarrhea, No Constipation, No Melena, No Hematochezia, No Other Genitourinary: No Dysuria, No Frequency, No Incontinence, No Hematuria, No Retention, No Other Musculoskeletal: No other, No neck pain, No shoulder pain, No arm pain, No back pain, No hand pain, No leg pain, No foot pain Skin: No Rash, No Lesions, No Jaundice, No Bruising, No Other Objective Vitals Vital Signs Date Time Temp Pulse Resp B/P (MAP) Pulse Ox O2 Delivery O2 Flow Rate FiO2 04/19/24 13:12 98.4 77 16 111/70 (84) 96 98.4 04/19/24 08:00 Room Air* 0 21 Intake/Output Intake and Output 04/19/24 07:00 Intake Total 600 ml Output Total 0 ml Balance 600 ml Intake Oral 240 ml IV Total 360 ml Output Urine Total 0 ml Medications Current Medications Medications Dose Ordered Sig/Mariano Route Start Time Stop Time Status Last Admin Dose Admin Aspirin 81 mg DAILY PO 04/18/24 10:00 04/19/24 09:15 81 MG Atorvastatin Calcium 10 mg HS PO 04/18/24 22:00 04/18/24 21:48 10 MG Sodium Chloride 1,000 ml @ 60 mls/hr [id number] IV 04/17/24 23:00 04/18/24 15:50 60 MLS/HR Acetaminophen/ Hydrocodone Bitart 1 tab Q4HP PRN PO 04/17/24 23:00 04/18/24 10:07 1 TAB Ondansetron HCl 4 mg Q4HP PRN IV 04/17/24 23:00 Docusate Sodium 100 mg BIDPRN PRN PO 04/17/24 23:00 Acetaminophen 650 mg Q6HP PRN PO 04/17/24 23:00 Morphine Sulfate 2 mg Q4HPRN PRN IV 04/17/24 23:00 Nitroglycerin 0.4 mg Q5MINP PRN SL 04/17/24 23:00 Morphine Sulfate 2 mg Q30M PRN IV 04/17/24 23:00 Hydralazine HCl 10 mg Q6HP PRN IV 04/17/24 23:00 Laboratory Results Laboratory Tests 04/17/24 16:00 Labs and/or images reviewed: Labs reviewed by me, Image(s) reviewed by me Assessment/Plan Assessment/Plan Chest pain probably noncardiac: Troponin negative, consult for Dr. Mcgrath Mild Hypokalemia potassium3.1: Replace potassium Check urine drug screen Plan discussed with: Patient Date of Service: Apr 19, 2024 Billing Provider: BECKY ACOSTA MD Common Visit Codes: [id number] INP/OBS CARE(HIGH) BECKY ACOSTA MD Apr 19, 2024 13:47
[2024-04-19] MEDS: POTASSIUM CHL 20 Meq TABLET PO ONE (15:33)
[2024-04-19 17:12] LABS: Amphetamine Screen, Urine Neg (NEGATIVE); Barbiturate Scree,Urine Neg (NEGATIVE); Benzodiazephine Screen, Urine Neg (NEGATIVE); Cannabinoid Screen, Urine Neg (NEGATIVE); Cocaine Screen, Urine Neg (NEGATIVE); Opiate Scree,Urine Neg (NEGATIVE); Phencyclidine Screen, Urine Neg (NEGATIVE)
--- NOTE | 2024-04-19 17:14 | DVHINCON2 ---
Date Seen: Apr 19, 2024 Referring Physician MD Bjorn Reason for Consultation Chest pain History of Present Illness This is a 48-year-old man who presented to the emergency room with a chief complaint of chest pain for one month. Describes his chest pain as substernal, nonradiating, sharp in nature, intermittent, exacerbated by agitation, and worse with inspiration. The patient also endorses mild shortness of breath associated with chest pain syndrome. Denies diaphoresis, palpitations, dizziness, or syncopal events. He underwent multiple 12 lead electrocardiograms revealing a normal sinus rhythm. Serial troponin levels are negative. Significant medical history includes dyslipidemia. Family history for cardiovascular disease only includes sister with a permanent pacemaker. Past Medical History Past medical history reviewed. No other significant than mentioned above. Past Surgical History Past Surgical history reviewed. No other significant than mentioned above. Family History: Diabetes mellitus G8 FATHER Family History See HPI. Social History Denies the use of illicit drugs or tobacco use. Admits to occasional alcohol use. Allergies: Coded Allergies: NO KNOWN ALLERGIES (Unverified , 01/26/17) Home Meds No Active Prescriptions or Reported Meds Home Meds Denies any home medications. Current Medications Current Medications Medications (Trade) Dose Ordered Sig/Mariano Route PRN Reason Start Time Stop Time Status Last Admin Atorvastatin Calcium (Lipitor) 10 mg HS PO 04/18/24 22:00 04/18/24 21:48 Review of Systems Constitutional: No symptom reported Ears, Nose, & Throat: No symptom reported Eyes: No symptom reported Neurological: No symptoms reported Pulmonary/Respiratory: SOB Cardiovascular: Chest pain Gastrointestinal: No symptom reported Genitourinary: No symptom reported Musculoskeletal: No symptom reported Skin: No symptom reported Psychiatric: No symptom reported Endocrine: No symptom reported Hemotologic/Lymphatic: No symptom reported Vital Signs Vital Signs Date Time Temp Pulse Resp B/P (MAP) Pulse Ox O2 Delivery O2 Flow Rate FiO2 04/19/24 17:02 98.1 77 16 117/70 (86) 98 98.1 04/19/24 08:00 Room Air* 0 21 Physical Exam General Appearance: Cooperative. Well developed. Well nourished. In no acute distress Head Exam: Normal inspection Neck Exam: Normal inspection. Non-tender. Normal alignment Pulmonary/Respiratory: Chest non-tender. Clear bilateral breath sounds Cardiovascular/Chest: Regular rate and rhythm. S1, S2. NSR. No murmurs. No JVD. Peripheral Pulses: 2+ Radial (R). 2+ Radial (L). 2+ Pedal (R). 2+ Pedal (L) Abdominal Exam: Normal bowel sounds. Soft. Nontender. No hepatospenomegaly. No masses Ankle Exam: Negative ankle edema Lower extremities: Negative lower extremity edema Neuro/Mental Status: A&O x4. Coherent Thoughts/Psych: Normal thought pattern. Appropriate mood and affect. Good judgement and insight Appearance: In no acute distress Skin Exam: Normal inspection. Normal color. Warm. Dry Labs/Diagnostic Data Labs Test 04/19/24 15:30 04/17/24 17:00 04/17/24 16:00 Range/Units Troponin I High Sensitivity < 3 L </=54 ng/L White Blood Count 6.7 4.4-10.8 10^3/uL Red Blood Count 4.68 4.5-5.90 10^6/uL Hemoglobin 14.5 13.5-17.5 g/dL Hematocrit 42.5 41.0-53.0 % Mean Corpuscular Volume 90.8 80.0-100.0 fL Mean Corpuscular Hemoglobin 31.1 28.0-32.0 pg Mean Corpuscular Hemoglobin Concent 34.2 32.0-36.0 g/dL Red Cell Distribution Width 13.3 11.8-14.3 % Platelet Count 199 140-450 10^3/uL Mean Platelet Volume 9.0 6.9-10.8 fL Neutrophils (%) (Auto) 55.2 37.0-80.0 % Lymphocytes (%) (Auto) 36.4 10.0-50.0 % Monocytes (%) (Auto) 6.8 0.0-12.0 % Eosinophils (%) (Auto) 1.0 0.0-7.0 % Basophils (%) (Auto) 0.6 0.0-2.0 % Neutrophils # (Auto) 3.7 1.6-8.6 10 ^3/uL Lymphocytes # (Auto) 2.4 0.4-5.4 10 ^3/uL Monocytes # (Auto) 0.5 0-1.3 10 ^3/uL Eosinophils # (Auto) 0.1 0-0.8 10 ^3/uL Basophils # (Auto) 0 0-0.2 10 ^3/uL Nucleated Red Blood Cells 0.1 % Sodium Level 139 136-145 mmol/L Potassium Level 3.2 L 3.5-5.1 mmol/L Chloride Level 103 98-107 mmol/L Carbon Dioxide Level 25 20-31 mmol/L Anion Gap 11 5-15 Blood Urea Nitrogen 11 9-23 mg/dL Creatinine 0.93 0.700-1.30 mg/dL Glomerular Filtration Rate Calc 101 >90 mL/min BUN/Creatinine Ratio 11.8 10.0-20.0 Serum Glucose 98 74-106 mg/dL Calcium Level 9.6 8.7-10.4 mg/dL Total Bilirubin 0.4 0.2-1.0 mg/dL Aspartate Amino Transferase (AST) 15 13-40 U/L Alanine Aminotransferase (ALT) < 9 7-40 U/L Alkaline Phosphatase 101 46-116 U/L Total Protein 7.2 5.7-8.2 g/dL Albumin 4.9 H 3.2-4.8 g/dL Assessment Chest pain rule out coronary artery disease Rule out structural heart disease Hypokalemia Dyslipidemia Obesity Plan/Recommendation (Dr. Mcgrath) The patient with possible cardiac chest pain will undergo a transthoracic echocardiogram to evaluate cardiac function as well as a treadmill Cardiolite stress test to rule out coronary ischemia. In the meantime, continue single-antiplatelet therapy and lipid-lowering agent. Monitor ECG changes and notify. Chest pain protocol. UDS and rest of blood work pending at this time. Thank you for allowing us to participate in this patient's care. Please call if you have any questions or concerns. This medical document was created using an electronic medical record system with voice recognition software and computerized dictation system. Although this document has been carefully reviewed, there might still be some phonetic and t ypographical errors. Occasional wrong-word or ``sound-alike substitutions may have occurred due to the inherent limitations of voice recognition software. These areas are purely typographical due to imperfections of the software programs and do not reflect any compromise in the patient's medical care. Please read the chart carefully and recognize, using context, where these case bstitutions have occurred. Plan discussed with: Patient, Other NYHA Physical activity limitations: NA Date of Service: Apr 19, 2024 Billing Provider: SUSAN SALAZAR Cardiology Common Codes: [id number] INP/OBS CARE (High) SUSAN SALAZAR [facility] Apr 19, 2024 17:14
[2024-04-20] VITALS (8 sets, daily range): BP systolic 110–125; BP diastolic 69–79; PULSE 66–90; RESP 16–18; TEMP 97.8–98.4; O2SAT 97–98
[2024-04-20 07:23] LABS: Basophils # (auto) 0 10 ^3/uL (0-0.2); Basophils % (auto) 0.5 % (0.0-2.0); Eosinophils # (auto) 0.1 10 ^3/uL (0-0.8); Eosinophils % (auto) 1.2 % (0.0-7.0); Hematocrit 43.9 % (41.0-53.0); Hemoglobin 14.7 g/dL (13.5-17.5); Lymphocytes % (auto) 32.3 % (10.0-50.0); Mean Corpuscular Hemoglobin 30.6 pg (28.0-32.0); Mean Corpuscular Hgb Conc. 33.5 g/dL (32.0-36.0); Mean Corpuscular Volume 91.3 fL (80.0-100.0); Monocytes # (auto) 0.4 10 ^3/uL (0-1.3); Monocytes % (auto) 7.2 % (0.0-12.0); Neutrophils # (auto) 3.6 10 ^3/uL (1.6-8.6); Neutrophils % (auto) 58.8 % (37.0-80.0); Nucleated Red Blood Cells % 0.1 %; Platelet Count (auto) 205 10^3/uL (140-450); Red Cell Distribution Width 13.3 % (11.8-14.3); White Blood Cell 6.1 10^3/uL (4.4-10.8)
[2024-04-20 07:47] LABS: Anion Gap 7 (5-15); Carbon Dioxide 27 mmol/L (20-31); Chloride 104 mmol/L (98-107); Potassium 4.3 mmol/L (3.5-5.1); Sodium 138 mmol/L (136-145)
[2024-04-20 07:48] LABS: Calcium 9.6 mg/dL (8.7-10.4)
[2024-04-20 07:53] LABS: BUN/Creatinine Ratio 10.4 (10.0-20.0); Blood Urea Nitrogen 10 mg/dL (9-23); Glucose 118 mg/dL (74-106); Triglycerides 253 mg/dL (< 150)
[2024-04-20 07:54] LABS: LDL Cholesterol 85 mg/dL (< 100); Magnesium 1.9 mg/dL (1.6-2.6)
[2024-04-20 07:55] LABS: Cholesterol 164 mg/dL (< 200)
[2024-04-20 08:07] LABS: HDL Cholesterol 37 mg/dL (40-59)
--- NOTE | 2024-04-20 09:49 | DVHCARD ---
Cardiology Stress Test [place] Treadmill Stress Test [place] Referring MD: RICARDA Salazar Protocol: Anthony (with cardiolite) Reason for referral: Chest Pain Target heart Rate:@85%: 146 Percent MPHR: 172 METS: 10.10 Resting Heart rate: 73 Resting Blood Pressure: 137/93 Exercise Heart Rate: 129 Exercise Blood Pressure: 160/82 Reason for Termination of Test: Completion of Protocol Baseline EKG: NSR Stress EKG: Sinus tachycardia without ST segment changes Functional Capacity: Good Normal Heart Rate Response: Adequate Blood Pressure Response: Hypertensive Clinical response: Non-ischemic Arrhythmia?: No Cardiolite Injected?: Yes ST-T Changes: Non/Minimal Probability of Inducible Ische: Perfusion result pending Comments: Uneventful Anthony protocol Date of Service: Apr 20, 2024 Billing Provider: SUSAN SALAZAR Cardiology Common Codes: PROCEDURE ONLY Treadmill W/Cardiolite Nuclear: [id number], INTERP, RPT SUSAN SALAZAR Apr 20, 2024 09:49
--- NOTE | 2024-04-20 11:10 | DVHPN2 ---
Reviewed: Care Plan, H&P, Labs, Medications, Previous Orders, Radiology Changes from previous H/P or p: No Changes Eyes: No Pain, No Vision change, No Conjunctivae inflammation, No Eyelid inflammation, No Other, No Redness ENT: No Ear pain, No Ear discharge, No Nose pain, No Nose discharge, No Nose congestion, No Mouth pain, No Mouth swelling, No Throat pain, No Throat swelling, No Other Cardiovascular: Chest Pain; No Palpitations, No Orthopnea, No Paroxysmal Noc. Dyspnea, No Edema, No Lt Headedness, No Other Respiratory: No Cough, No Dry, No Shortness of breath, No SOB with excertion, No Wheezing, No Hemoptysis, No Pleuritic Pain, No Sputum, No Other Gastrointestinal: No Nausea, No Vomiting, No Abdominal Pain, No Diarrhea, No Constipation, No Melena, No Hematochezia, No Other Genitourinary: No Dysuria, No Frequency, No Incontinence, No Hematuria, No Retention, No Other Musculoskeletal: No other, No neck pain, No shoulder pain, No arm pain, No back pain, No hand pain, No leg pain, No foot pain Skin: No Rash, No Lesions, No Jaundice, No Bruising, No Other Objective Vitals Vital Signs Date Time Temp Pulse Resp B/P (MAP) Pulse Ox O2 Delivery O2 Flow Rate FiO2 04/20/24 08:33 98.0 82 16 125/72 (89) 97 98.0 04/20/24 08:00 Room Air* 0 21 Intake/Output Intake and Output 04/20/24 07:00 Intake Total 1100 ml Balance 1100 ml Intake Oral 1100 ml # Voids 6 # Bowel Movements 2 Medications Current Medications Medications Dose Ordered Sig/Mariano Route Start Time Stop Time Status Last Admin Dose Admin Aspirin 81 mg DAILY PO 04/18/24 10:00 04/20/24 11:02 81 MG Atorvastatin Calcium 10 mg HS PO 04/18/24 22:00 04/19/24 21:11 10 MG Sodium Chloride 1,000 ml @ 60 mls/hr [id number] IV 04/17/24 23:00 04/20/24 03:45 60 MLS/HR Acetaminophen/ Hydrocodone Bitart 1 tab Q4HP PRN PO 04/17/24 23:00 04/18/24 10:07 1 TAB Ondansetron HCl 4 mg Q4HP PRN IV 04/17/24 23:00 Docusate Sodium 100 mg BIDPRN PRN PO 04/17/24 23:00 Acetaminophen 650 mg Q6HP PRN PO 04/17/24 23:00 Morphine Sulfate 2 mg Q4HPRN PRN IV 04/17/24 23:00 Nitroglycerin 0.4 mg Q5MINP PRN SL 04/17/24 23:00 Morphine Sulfate 2 mg Q30M PRN IV 04/17/24 23:00 Hydralazine HCl 10 mg Q6HP PRN IV 04/17/24 23:00 Laboratory Results Laboratory Tests 04/20/24 07:00 Chemistry Test 04/20/24 07:00 Calcium Level 9.6 mg/dL (8.7-10.4) Magnesium Level 1.9 mg/dL (1.6-2.6) Lipid panel Test 04/20/24 07:00 Cholesterol Level 164 mg/dL (< 200) HDL Cholesterol 37 mg/dL (40-59) L Triglycerides Level 253 mg/dL (< 150) H HgA1c, TSH Test 04/20/24 07:00 Hemoglobin A1c 6.2 % A1C (<5.7) H Thyroid Stimulating Hormone (TSH) 2.94 uIU/mL (0.55-4.78) Labs and/or images reviewed: Labs reviewed by me, Image(s) reviewed by me Assessment/Plan Assessment/Plan Chest pain rule out coronary artery disease, cardiology consult appreciated Rule out structural heart disease Hypokalemia Dyslipidemia Obesity Echocardiogram pending Cardiolite stress test result pending Plan discussed with: Patient My Orders Orders - BECKY ACOSTA MD Procedure Category Date Status Time * Cardiology Consult CONS 04/19/24 Transmitted 13:44 Date of Service: Apr 20, 2024 Billing Provider: BECKY ACOSTA MD Common Visit Codes: [id number] INP/OBS CARE(HIGH) BECKY ACOSTA MD Apr 20, 2024 11:10
--- NOTE | 2024-04-20 16:25 | DVHPN2 ---
Consult Progress Note Date Seen: Apr 20, 2024 Subjective Review of Systems: CVS:Normal, RESPIRATORY:Normal, NEURO:Normal Objective vital signs Vital Sign Date Time Temp Pulse Resp B/P (MAP) Pulse Ox O2 Delivery O2 Flow Rate FiO2 04/20/24 13:02 97.8 72 16 113/69 (84) 98 97.8 04/20/24 08:00 Room Air* 0 21 Total Intake and Output 04/19/24 04/19/24 04/20/24 15:00 23:00 07:00 Intake Total 700 ml 400 ml Balance 700 ml 400 ml medications Current Medications Medications Dose Ordered Sig/Mariano Route Start Time Stop Time Status Last Admin Dose Admin Aspirin 81 mg DAILY PO 04/18/24 10:00 04/20/24 11:02 81 MG Atorvastatin Calcium 10 mg HS PO 04/18/24 22:00 04/19/24 21:11 10 MG Sodium Chloride 1,000 ml @ 60 mls/hr [id number] IV 04/17/24 23:00 04/20/24 03:45 60 MLS/HR Acetaminophen/ Hydrocodone Bitart 1 tab Q4HP PRN PO 04/17/24 23:00 04/18/24 10:07 1 TAB Ondansetron HCl 4 mg Q4HP PRN IV 04/17/24 23:00 Docusate Sodium 100 mg BIDPRN PRN PO 04/17/24 23:00 Acetaminophen 650 mg Q6HP PRN PO 04/17/24 23:00 Morphine Sulfate 2 mg Q4HPRN PRN IV 04/17/24 23:00 Nitroglycerin 0.4 mg Q5MINP PRN SL 04/17/24 23:00 Morphine Sulfate 2 mg Q30M PRN IV 04/17/24 23:00 Hydralazine HCl 10 mg Q6HP PRN IV 04/17/24 23:00 Examination: LUNGS:Normal, CVS:Normal, NEURO:Normal laboratory and microbiology Laboratory Tests 04/20/24 07:00 Test 04/20/24 07:00 Range/Units Serum Glucose 118 H 74-106 mg/dL Problem List/Assessment/Plan Problem List/Assessment/Plan Chest pain rule out coronary artery disease Rule out structural heart disease Pre-diabetes, newly diagnosed Hypokalemia Dyslipidemia Obesity Plan/Recommendation (Dr. Pate) The patient with possible cardiac chest pain underwent a transthoracic echocardiogram to evaluate cardiac function as well as completed a treadmill Cardiolite stress test to rule out coronary ischemia. Continue single- antiplatelet therapy and lipid-lowering agent. In the setting of unremarkable results, there is no further cardiac work-up indicated at this time. Kindly call if in need to re-consult. Thank you for allowing us to participate in this patient's care. This medical document was created using an electronic medical record system with voice recognition software and computerized dictation system. Although this document has been carefully reviewed, there might still be some phonetic and typographical errors. Occasional wrong-word or ``sound-alike substitutions may have occurred due to the inherent limitations of voice recognition software. These areas are purely typographical due to imperfections of the software programs and do not reflect any compromise in the patient's medical care. Please read the chart carefully and recognize, using context, where these substitutions have occurred. Plan discussed with: Patient, Other Date of Service: Apr 20, 2024 Billing Provider: SUSAN SALAZAR Cardiology Common Codes: [id number] HOSP CARE(High SUSAN SALAZAR Apr 20, 2024 16:25
[2024-04-20] MEDS: ATORVASTATIN 20 MG TAB PO SCH (21:25)
[2024-04-20] MEDS: PANTOPRAZOLE 40 MG TAB PO ONE (21:25)
[2024-04-21 01:00] VITALS: BP 119/72; PULSE 77; RESP 18; TEMP 98.3; O2SAT 98
[2024-04-21 05:00] VITALS: BP 112/70; PULSE 81; RESP 17; TEMP 98.3; O2SAT 98
[2024-04-21 08:00] VITALS: PULSE 76
[2024-04-21 08:49] VITALS: BP 116/77; PULSE 77; RESP 17; TEMP 98; O2SAT 95
--- NOTE | 2024-04-21 08:50 | DVHSR ---
APPROVED REPORT Exam: Nuclear Stress Test Indication: Chest Pain Stress Tech: Barbara Sinclair Ht: 5 ft 10 in Wt: 208 lbs BSA: 2.12 m2 HR: 77 bpm BP: 137/93 mmHg BMI: 29.84 Rhythm: NSR with BBB Medical History Medical History: Dyslipidemia, Obesity Stress Test Details Stress Test: Exercise stress testing was performed using a Anthony protocol. Reason for pharmacologic stress test: Chest Pain. HR Resting HR: 77 bpmMax Heart Rate (APMHR): 172.452451 bpm Max HR Achieved: 129 bpmTarget HR (85% APMHR): 146.690716 bpm % of APMHR: 75.00 Recovery HR: 80 bpm BP Resting BP: 137/93 mmHg Recovery BP: 142/95 mmHg ECG Resting ECG: NSR with BBB Clinical Reason for Termination: Completed protocol Stress ECG Conclusion Review of the myocardial perfusion images during stress demonstrated homogeneous radiotracer uptake t hroughout the left ventricular myocardium. Left ventricle had volumes are normal. Ejection fraction is normal and is estimated at 54%. No gated images are available to assess for wall motion abnormal ities. Impressions: 1. Low risk myocardial perfusion scan with no evidence of ischemia or prior infarction. 2. Normal left ventricular systolic function. NM EXAM: Myocardial Perfusion REST/STRESS Imaging Protocol: Rest Tc-99m/Stress Tc-99m 1 day Resting Data Rest SPECT myocardial perfusion imaging was performed in supine position 30 minutes following the int ravenous injection of 10.8 mCi of Tc-99m Sestamibi. Time of rest injection: 0815 Time of rest imagin Administration Route: IV Administration Site: Left Hand Exercise Stress At peak stress, the patient was injected intravenously with 31.2mCi of Tc-99m Sestamibi. Time of stress injection: 0915 Time of stress imagin Administration Route: IV Administration Site: Left Hand Gated Stress SPECT was performed 45 minutes after stress injection. The images were gated to evaluate regional wall motion and calculate left ventricular ejection fracti on. Nuclear Conclusion ECG Findings: negative for ischemia Clinical Findings: negative for ischemia Nuclear Findings: negative for ischemia Exercise Capacity: not assessed Left Ventricular Function: normal Risk Study: low Review of the myocardial perfusion images during stress demonstrated homogeneous radiotracer uptake t hroughout the left ventricular myocardium. Left ventricle had volumes are normal. Ejection fraction is normal and is estimated at 54%. No gated images are available to assess for wall motion abnormal ities. Impressions: 1. Low risk myocardial perfusion scan with no evidence of ischemia or prior infarction. 2. Normal left ventricular systolic function.
--- NOTE | 2024-04-21 09:41 | DVHSR ---
APPROVED REPORT EXAM: Two-dimensional and M-mode echocardiogram with Doppler and color Doppler. Blood Pressure: 110/69 mmHg INDICATION Chest Pain RISK FACTORS Height: 5'10", Weight: 207 DIMENSIONS LVDd5.3 (3.8-5.7cm)LA (2D)4.0 (1.9-4.0cm)Aortic Root3.0 (2.0-3.7cm) LVDs3.9 (2.5-4.0cm)LA (MM) (1.9-4.0cm)Aortic Cusp Exc2.2 (1.5-2.0cm) EF (%) 55.0 (55-70%)Rt. Atrium4.8 (1.9-4.0cm)Asc. Aorta cm IVSd1.0 (0.7-1.1cm)RV (D)4.4 (1.8-2.4cm) PWd1.1 (0.7-1.1cm) Mitral Valve MitralMitral Stenosis E wave0.65m/sMV Mean GR.mmHg A wave0.50m/sMV Peak GR.mmHg E/A ratio1.32D MVAcm2 DECEL [id number] 1/2 Timems Aortic Valve Aortic ValveAortic Stenosis V10.83m/Elena Mean GR.4mmHg V21.27m/Elena Peak GR.6mmHg LVOT Diameter2.2 (1.8-2.4cm)Doppler AVA2.48cm2 Pulmonic Valve V20.95m/s Tricuspid Valve TR Velocity2.24m/s [id number] LEFT VENTRICLE The left ventricle is of normal size. Wall thickness is normal. Ejection fraction is normal and is estimated at 55%. There is no gross wall motion abnormalities. Diastolic function is indeterminate. E to E prime ratio is in normal range. RIGHT VENTRICLE The right ventricle is mildly dilated in size. Systolic function is normal. ATRIA Both atria are mildly dilated in size. Intra-atrial septum is likely normal. MITRAL VALVE Normal structure and function. No significant mitral regurgitation. PULMONIC VALVE Likely normal. TRICUSPID VALVE Normal structure and function. There is mild tricuspid regurgitation. PA systolic pressure is estim ated at 25-30 mm Hg. AORTIC VALVE Normal structure and function. GREAT VESSELS The aortic root is of normal size. Proximal ascending aorta isn't visualized. PERICARDIAL EFFUSION No significant pericardial effusion. IVC is of normal size and collapses normally with inspiration. Conclusion Normal left ventricular size and systolic function. Ejection fraction is estimated at 55%. Mildly dilated right ventricle with normal systolic function. Mild biatrial enlargement. No hemodynamically significant valvular disease. PA systolic pressure is estimated at 25-30 mm Hg. No significant pericardial effusion.
--- NOTE | 2024-04-21 09:48 | DVHPN2 ---
Consult Progress Note Date Seen: Apr 21, 2024 Subjective Review of Systems: CVS:Normal, RESPIRATORY:Normal, NEURO:Normal Objective vital signs Vital Sign Date Time Temp Pulse Resp B/P (MAP) Pulse Ox O2 Delivery O2 Flow Rate FiO2 04/21/24 08:49 98.0 77 17 116/77 (90) 95 98.0 04/20/24 20:00 Room Air* 0 21 Total Intake and Output 04/20/24 04/20/24 04/21/24 15:00 23:00 07:00 Intake Total 600 ml 800 ml Balance 600 ml 800 ml medications Current Medications Medications Dose Ordered Sig/Mariano Route Start Time Stop Time Status Last Admin Dose Admin Aspirin 81 mg DAILY PO 04/18/24 10:00 04/20/24 11:02 81 MG Sodium Chloride 1,000 ml @ 60 mls/hr [id number] IV 04/17/24 23:00 04/20/24 03:45 60 MLS/HR Acetaminophen/ Hydrocodone Bitart 1 tab Q4HP PRN PO 04/17/24 23:00 04/18/24 10:07 1 TAB Ondansetron HCl 4 mg Q4HP PRN IV 04/17/24 23:00 Docusate Sodium 100 mg BIDPRN PRN PO 04/17/24 23:00 Acetaminophen 650 mg Q6HP PRN PO 04/17/24 23:00 Morphine Sulfate 2 mg Q4HPRN PRN IV 04/17/24 23:00 Nitroglycerin 0.4 mg Q5MINP PRN SL 04/17/24 23:00 Morphine Sulfate 2 mg Q30M PRN IV 04/17/24 23:00 Hydralazine HCl 10 mg Q6HP PRN IV 04/17/24 23:00 Atorvastatin Calcium 40 mg HS PO 04/20/24 22:00 04/20/24 21:25 40 MG Examination: LUNGS:Normal, CVS:Normal, NEURO:Normal laboratory and microbiology Laboratory Tests 04/20/24 07:00 Test 04/20/24 07:00 Range/Units Serum Glucose 118 H 74-106 mg/dL Problem List/Assessment/Plan Problem List/Assessment/Plan Chest pain rule out coronary artery disease Pre-diabetes, newly diagnosed Hypokalemia Dyslipidemia Obesity Plan/Recommendation (Dr. Mcgrath) The patient with possible cardiac chest pain underwent a transthoracic echocardiogram revealing an LVEF of 55%. He also completed a treadmill Cardiolite stress test deemed to be at a low-risk myocardial perfusion scan with no evidence of ischemia or prior infarction. Continue lipid-lowering agent. Counseled on diet, exercise and weight loss. There is no further cardiac work- up indicated at this time. Kindly call if in need to re-consult. Thank you for allowing us to participate in this patient's care. This medical document was created using an electronic medical record system with voice recognition software and computerized dictation system. Although this document has been carefully reviewed, there might still be some phonetic and typographical errors. Occasional wrong-word or ``sound-alike substitutions may have occurred due to the inherent limitations of voice recognition software. These areas are purely typographical due to imperfections of the software programs and do not reflect any compromise in the patient's medical care. Please read the chart carefully and recognize, using context, where these substitutions have occurred. Plan discussed with: Patient, Other Date of Service: Apr 21, 2024 Billing Provider: SUSAN SALAZAR Cardiology Common Codes: [id number] INP/OBS CARE(Mod) SUSAN SALAZAR Apr 21, 2024 09:48
--- NOTE | 2024-04-21 10:35 | DVHPN2 ---
Reviewed: Care Plan, H&P, Labs, Medications, Previous Orders, Radiology Changes from previous H/P or p: No Changes Eyes: No Pain, No Vision change, No Conjunctivae inflammation, No Eyelid inflammation, No Other, No Redness ENT: No Ear pain, No Ear discharge, No Nose pain, No Nose discharge, No Nose congestion, No Mouth pain, No Mouth swelling, No Throat pain, No Throat swelling, No Other Cardiovascular: Chest Pain; No Palpitations, No Orthopnea, No Paroxysmal Noc. Dyspnea, No Edema, No Lt Headedness, No Other Respiratory: No Cough, No Dry, No Shortness of breath, No SOB with excertion, No Wheezing, No Hemoptysis, No Pleuritic Pain, No Sputum, No Other Gastrointestinal: No Nausea, No Vomiting, No Abdominal Pain, No Diarrhea, No Constipation, No Melena, No Hematochezia, No Other Genitourinary: No Dysuria, No Frequency, No Incontinence, No Hematuria, No Retention, No Other Musculoskeletal: No other, No neck pain, No shoulder pain, No arm pain, No back pain, No hand pain, No leg pain, No foot pain Skin: No Rash, No Lesions, No Jaundice, No Bruising, No Other Objective Vitals Vital Signs Date Time Temp Pulse Resp B/P (MAP) Pulse Ox O2 Delivery O2 Flow Rate FiO2 04/21/24 08:49 98.0 77 17 116/77 (90) 95 98.0 04/20/24 20:00 Room Air* 0 21 Intake/Output Intake and Output 04/21/24 07:00 Intake Total 1400 ml Balance 1400 ml Intake Oral 1400 ml # Voids 5 # Bowel Movements 1 Medications Current Medications Medications Dose Ordered Sig/Mariano Route Start Time Stop Time Status Last Admin Dose Admin Aspirin 81 mg DAILY PO 04/18/24 10:00 04/21/24 10:02 81 MG Sodium Chloride 1,000 ml @ 60 mls/hr [id number] IV 04/17/24 23:00 04/21/24 10:05 60 MLS/HR Acetaminophen/ Hydrocodone Bitart 1 tab Q4HP PRN PO 04/17/24 23:00 04/18/24 10:07 1 TAB Ondansetron HCl 4 mg Q4HP PRN IV 04/17/24 23:00 Docusate Sodium 100 mg BIDPRN PRN PO 04/17/24 23:00 Acetaminophen 650 mg Q6HP PRN PO 04/17/24 23:00 Morphine Sulfate 2 mg Q4HPRN PRN IV 04/17/24 23:00 Nitroglycerin 0.4 mg Q5MINP PRN SL 04/17/24 23:00 Morphine Sulfate 2 mg Q30M PRN IV 04/17/24 23:00 Hydralazine HCl 10 mg Q6HP PRN IV 04/17/24 23:00 Atorvastatin Calcium 40 mg HS PO 04/20/24 22:00 04/20/24 21:25 40 MG Laboratory Results Laboratory Tests 04/20/24 07:00 Labs and/or images reviewed: Labs reviewed by me, Image(s) reviewed by me Assessment/Plan Assessment/Plan Chest pain coronary artery disease ruled out, echo 55 % ejection fraction, stress test negative cardiology consult appreciated Rule out structural heart disease Hypokalemia Dyslipidemia Obesity Plan discussed with: Patient My Orders Orders - BECKY ACOSTA MD Procedure Category Date Status Time Cardiac DIET 04/21/24 Transmitted Diet-2gna,Lofat,Lochol Breakfast Date of Service: Apr 21, 2024 Billing Provider: BECKY ACOSTA MD Common Visit Codes: [id number] INP/OBS CARE(HIGH) BECKY ACOSTA MD Apr 21, 2024 10:35
[2024-04-21] MEDS ORDERED: ATOR-507 PO (10:36)
[2024-04-21] MEDS ORDERED: ASPI-628 PO (10:36)
--- NOTE | 2024-04-21 10:41 | DVHDS2 ---
Discharge Summary Date of Admission Apr 17, 2024 at 23:00 Date of Discharge: Apr 21, 2024 Admitting Diagnosis Chest pain Wounds: None Labs/Diagnostic Data: Laboratory Results Test 04/20/24 07:00 04/19/24 15:30 04/17/24 17:00 04/17/24 16:00 White Blood Count 6.1 10^3/uL (4.4-10.8) Red Blood Count 4.80 10^6/uL (4.5-5.90) Hemoglobin 14.7 g/dL (13.5-17.5) Hematocrit 43.9 % (41.0-53.0) Mean Corpuscular Volume 91.3 fL (80.0-100.0) Mean Corpuscular Hemoglobin 30.6 pg (28.0-32.0) Mean Corpuscular Hemoglobin Concent 33.5 g/dL (32.0-36.0) Red Cell Distribution Width 13.3 % (11.8-14.3) Platelet Count 205 10^3/uL (140-450) Mean Platelet Volume 8.9 fL (6.9-10.8) Neutrophils (%) (Auto) 58.8 % (37.0-80.0) Lymphocytes (%) (Auto) 32.3 % (10.0-50.0) Monocytes (%) (Auto) 7.2 % (0.0-12.0) Eosinophils (%) (Auto) 1.2 % (0.0-7.0) Basophils (%) (Auto) 0.5 % (0.0-2.0) Neutrophils # (Auto) 3.6 10 ^3/uL (1.6-8.6) Lymphocytes # (Auto) 2.0 10 ^3/uL (0.4-5.4) Monocytes # (Auto) 0.4 10 ^3/uL (0-1.3) Eosinophils # (Auto) 0.1 10 ^3/uL (0-0.8) Basophils # (Auto) 0 10 ^3/uL (0-0.2) Nucleated Red Blood Cells 0.1 % Sodium Level 138 mmol/L (136-145) Potassium Level 4.3 mmol/L (3.5-5.1) Chloride Level 104 mmol/L (98-107) Carbon Dioxide Level 27 mmol/L (20-31) Anion Gap 7 (5-15) Blood Urea Nitrogen 10 mg/dL (9-23) Creatinine 0.96 mg/dL (0.700-1.30) Glomerular Filtration Rate Calc 98 mL/min (>90) BUN/Creatinine Ratio 10.4 (10.0-20.0) Serum Glucose 118 mg/dL (74-106) Hemoglobin A1c 6.2 % A1C (<5.7) Calcium Level 9.6 mg/dL (8.7-10.4) Magnesium Level 1.9 mg/dL (1.6-2.6) Triglycerides Level 253 mg/dL (< 150) Cholesterol Level 164 mg/dL (< 200) LDL Cholesterol 85 mg/dL (< 100) HDL Cholesterol 37 mg/dL (40-59) Thyroid Stimulating Hormone (TSH) 2.94 uIU/mL (0.55-4.78) Urine Opiates Screen Neg (NEGATIVE) Urine Fentanyl Screen Neg (NEGATIVE) Urine Barbiturates Screen Neg (NEGATIVE) Urine Phencyclidine Screen Neg (NEGATIVE) Urine Amphetamines Screen Neg (NEGATIVE) Urine Benzodiazepines Screen Neg (NEGATIVE) Urine Cocaine Screen Neg (NEGATIVE) Urine Cannabinoids Screen Neg (NEGATIVE) Troponin I High Sensitivity < 3 ng/L (</=54) Total Bilirubin 0.4 mg/dL (0.2-1.0) Aspartate Amino Transferase (AST) 15 U/L (13-40) Alanine Aminotransferase (ALT) < 9 U/L (7-40) Alkaline Phosphatase 101 U/L (46-116) Total Protein 7.2 g/dL (5.7-8.2) Albumin 4.9 g/dL (3.2-4.8) Other Laboratory Tests 04/20/24 07:00 Brief Hx & Hospital Course: 48-year-old male with no previous medical history came in for chest pain troponin negative x3 echo 55 percent ejection fraction treated per ACS protocol cardiology consult by Dr. Mcgrath stress test negative. Treated with the aspirin and Lipitor patient is asymptomatic cleared for discharge by Cardiology. Discharged home on aspirin and Lipitor he will follow up with his primary Dr. patient is asymptomatic with stable vital signs at the time of discharge Consults/Reason for consult Cardiology Operations or Procedures Echocardiogram Cardiolite stress test Condition at Discharge: Fair Final Diagnosis/Problems List Chest pain coronary artery disease ruled out, echo 55 % ejection fraction, stress test negative cardiology consult appreciated Hypokalemia Dyslipidemia Obesity Discharge Disposition: Home Discharge Instruct/Medications Diet: Cardiac 2g Na,low cholest Activity: Light activity Follow Up/Referral: Follow up with the primary Dr Medications: Lipitor Aspirin Transmitted to pharmacy 39 (Time Taken for discharge summary 39 minutes) Discharge Statement: "Patient was advised to return to the ER or call 911 if any headaches, dizziness, shortness of breath, chest pain, abdominal pain, bleeding, fevers, or worsening of medical condition. Patient was counseled about treatment plan, medications, possible side effects, patientverbalized understanding. All questions were answered to the best of my ability. This discharge took greater then 30 minutes in planning, reviewing documentation, counseling the patient, and discussing with other team members." ASSESSMENT ASSESSMENT Hospital Course Uneventful Assessment Chest pain coronary artery disease ruled out, echo 55 % ejection fraction, stress test negative cardiology consult appreciated Hypokalemia Dyslipidemia Obesity Date of Service: Apr 21, 2024 Billing Provider: BECKY ACOSTA MD Common Visit Codes: 11992-BNN/OBS DISCH DAY >30min BECKY ACOSTA MD Apr 21, 2024 10:41
[2024-04-21 13:00] VITALS: BP 99/72; PULSE 72; RESP 18; TEMP 97.6; O2SAT 94
== END 2024-04-21 14:37 | disposition home or self-care (01) | DRG 203 ==
LOC: ER 15:48 → TELE 23:00 → UNDODISIN 04-18 05:17 → TELE-WESTW 04-18 21:44
PROVIDERS: ADMIT Nurse Practitioner Family; ATTEND Family Medicine
DX: M94.0 Chondrocostal junction syndrome [Tietze] (principal); E66.9 Obesity, unspecified; E87.6 Hypokalemia; E78.5 Hyperlipidemia, unspecified; Z68.30 Body mass index [BMI] 30.0-30.9, adult; Z83.3 Family history of diabetes mellitus; Z82.49 Family history of ischemic heart disease and other diseases of the circulatory system; Z79.899 Other long term (current) drug therapy
CPT/HCPCS: 36415; 71046; 78452; 80048; 80053; 80061; 80307; 83036; 83735; 84443; 84484; 85025; 93005; 93017; 93306; G0378